=== PATIENT | male | born 1960 | race Caucasian/White ===

== ENCOUNTER 2025-07-27 07:32 | Emergency (ER) | payer SELFPAY ==
[~2025-07-27] VITALS: Ht 182.9 cm; Wt 144.0 kg
[2025-07-27 07:35] VITALS: BP 0/0; PULSE 0; RESP 22; O2SAT 0
== END 2025-07-27 14:10 ==
LOC: EMS 07:33
DX: I46.9 Cardiac arrest, cause unspecified (principal)
CPT/HCPCS: 82962; 92950; 99285